=== PATIENT | female | born 1975 | race Caucasian/White ===

== ENCOUNTER 2016-09-06 13:19 | Emergency (ER) | payer OTHER ==
[~2016-09-06] VITALS: Ht 157.5 cm; Wt 80.0 kg
[2016-09-06 13:22] VITALS: Ht 157.5 cm; Wt 80.0 kg
--- NOTE | 2016-09-06 16:01 | ERA ---
ER Documentation Chief Complaint Date/Time DATE: 09/06/16 TIME: 15:56 Chief Complaint Complains of fever and abdominal pain since last night HPI Patient is a 41-year-old female coming in complaining of lower abdominal pain, fever, nausea mild headache, chills, and body aches 12 hours. Patient denies vomiting, changes in bowel or bladder, dysuria, hematuria, melena, migration of pain, constipation or diarrhea. Denies being sexually active for the past year and a half. Has not taken any medications at this point to relieve the symptoms. Measured temperature originally 104, today at in the ER is was above 102F. Patient has never had symptoms like this before. Patient has not had a flu vaccine. Patient's daughter who is one and [age] years old had cold symptoms 1 week ago. Patient's daughter is up-to-date on vaccinations. Patient also reports lyssa blood in stool 1 week ago. No symptoms occurring with bowel or bladder symptoms. Does complain of mild suprapubic tenderness. Feels nauseated when she pushes down on her pubis area. ROS All systems reviewed and are negative except as per history of present illness. Medications Home Meds Active Scripts Ibuprofen* (Motrin*) 600 Mg Tab, 600 MG PO Q6H Y for PAIN AND OR ELEVATED TEMP, #30 TAB Prov:VANNESA SNOWDEN PA-C 09/06/16 Oseltamivir Phosphate* (Tamiflu*) 75 Mg Capsule, 75 MG PO BID for 5 Days, CAP Prov:VANNESA SNOWDEN PA-C 09/06/16 PMhx/Soc Medical and Surgical Hx: pt denies Medical Hx, pt denies Surgical Hx Physical Exam Vitals Vital Signs Date Time Temp Pulse Resp B/P Pulse Ox O2 Delivery O2 Flow Rate FiO2 09/06/16 21:56 98.9 104 20 102/59 99 Room Air 09/06/16 16:19 102.3 09/06/16 13:22 102.7 133 20 127/76 96 Physical Exam Const: [] Head: Atraumatic Eyes: Normal Conjunctiva ENT: Normal External Ears, Nose and Mouth. Neck: Full range of motion..~ No meningismus. Resp: Clear to auscultation bilaterally Cardio: Regular rate and rhythm, no murmurs Abd: Soft, non tender, non distended. Normal bowel sounds Skin: No petechiae or rashes Back: No midline or flank tenderness Ext: No cyanosis, or edema Neur: Awake and alert Psych: Normal Mood and Affect Result Diagram: 09/06/16 1615 09/06/16 1615 Results 24 hrs Laboratory Tests Test 09/06/16 16:09 09/06/16 16:15 09/06/16 16:55 Urine Color YELLOW Urine Clarity SLIGHTLY CLOUDY Urine pH 6.5 Urine Specific [place] 1.015 Urine Ketones NEGATIVE Urine Nitrite NEGATIVE Urine Bilirubin NEGATIVE Urine Urobilinogen 1.0 E.U./dL Urine Leukocyte Esterase NEGATIVE Urine Microscopic RBC 10-25/HPF Urine Microscopic WBC NONE SEEN/HPF Urine Squamous Epithelial Cells FEW Urine Bacteria RARE Urine Hemoglobin TRACE Urine Glucose NEGATIVE% Urine Total Protein 1+ White Blood Count 18.810^3/ul Red Blood Count 4.1010^6/ul Hemoglobin 9.6g/dl Hematocrit 31.7% Mean Corpuscular Volume 77.3fl Mean Corpuscular Hemoglobin 23.4pg Mean Corpuscular Hemoglobin Concent 30.3g/dl Red Cell Distribution Width 14.6% Platelet Count 89080^3/UL Mean Platelet Volume 9.5fl Neutrophils % 89.2% Lymphocytes % 6.7% Monocytes % 3.2% Eosinophils % 0.1% Basophils % 0.3% Nucleated Red Blood Cells % 0.1/100WBC Neutrophils # 16.810^3/ul Lymphocytes # 1.310^3/ul Monocytes # 0.610^3/ul Eosinophils # 0.010^3/ul Basophils # 0.110^3/ul Nucleated Red Blood Cells # 0.010^3/ul Sodium Level 132mmol/L Potassium Level 3.7mmol/L Chloride Level 96mmol/L Carbon Dioxide Level 26mmol/L Anion Gap 14 Blood Urea Nitrogen 11mg/dl Creatinine 0.81mg/dl Glucose Level 117mg/dl Calcium Level 9.4mg/dl Total Bilirubin 0.3mg/dl Direct Bilirubin 0.00mg/dl Indirect Bilirubin 0.3mg/dl Aspartate Amino Transf (AST/SGOT) 27IU/L Alanine Aminotransferase (ALT/SGPT) 39IU/L Alkaline Phosphatase 158IU/L Total Protein 8.4g/dl Albumin 4.5g/dl Globulin 3.90g/dl Albumin/Globulin Ratio 1.15 Stool Occult Blood NEGATIVE Current Medications Medications (Trade) Dose Ordered Sig/Uzma Route PRN Reason Start Time Stop Time Status Last Admin Dose Admin Ibuprofen (Motrin) 600 mg ONCE ONCE PO 09/06/16 16:30 09/06/16 16:31 DC 09/06/16 16:25 Procedures/MDM Patient is complaining of abdominal pain, chills, body aches, fever, mild headache for the past 12 hours. Patient symptoms are consistent with food. Patient has never had symptoms like this before. Patient also claims to have had past bright red blood per rectum. We will go ahead and evaluate for differential including but not limited to diverticulitis diverticulosis, colitis. We will also retrieve a urine sample to evaluate for urinary tract infection and . was negative, blood in stool was negative with guaiac test, CT showed only 2.5 cm ovarian cyst and enlarged uterus, no concern for diverticular pathology, no concern for appendicitis, no relation to food no concern for liver\gallbladder attacks/pancreas pathology, no tenderness on abdominal exam except for mild suprapubic tenderness. No polyuria or dysuria noted and urinary tract infection is highly unlikely with a negative urine exam. Went ahead and got a chest x-ray to rule out possible pneumonia. Chest x-ray was negative. Flu test was negative with poor sensitivity we will go ahead and treat for flu with Tamiflu since it is within the 2 day period. At this time the most likely diagnosis is influenza. Strength in by the fact that she has not gotten the vaccination past few years. I discussed this case with Dr. Sanderson and he agrees with the assessment and plan. Departure Condition: Stable Additional Instructions: Return to emergency department immediately if symptoms worsen or persist. VANNESA SNOWDEN PA-C Sep 06, 2016 16:01
[2016-09-06 16:21] LABS: ADD SCAN DIFF NO
[2016-09-06 16:24] LABS: BASOPHIL # 0.1 10^3/ul (0.0-0.1); BASOPHILS % 0.3 % (0.0-2.0); EOSINOPHILS % 0.1 % (0.0-7.0); HEMATOCRIT 31.7 % (37.0-47.0); HEMOGLOBIN 9.6 g/dl (12.0-16.0); LYMPHOCYTES # 1.3 10^3/ul (0.8-2.9); LYMPHOCYTES % 6.7 % (15.0-51.0); MEAN CORPUSCULAR HEMOGLOBIN 23.4 pg (29.0-33.0); MEAN CORPUSCULAR HGB CONC 30.3 g/dl (32.0-37.0); MEAN CORPUSCULAR VOLUME 77.3 fl (82.0-101.0); MEAN PLATELET VOLUME 9.5 fl (7.4-10.4); MONOCYTE # 0.6 10^3/ul (0.3-0.9); MONOCYTES % 3.2 % (0.0-11.0); NEUTROPHIL # 16.8 10^3/ul (1.6-7.5); NEUTROPHILS % 89.2 % (39.0-77.0); NUCLEATED RED BLOOD CELLS% 0.1 /100WBC (0.0-0.0); PLATELET COUNT 465 10^3/UL (140-415); RED CELL DISTRIBUTION WIDTH 14.6 % (11.5-14.5); WHITE BLOOD COUNT 18.8 10^3/ul (4.8-10.8)
[2016-09-06 16:27] LABS: ADD UMIC YES; URINE BILIRUBIN (Dip) NEGATIVE (NEGATIVE); URINE BLOOD (Dip) TRACE (NEGATIVE); URINE COLOR YELLOW (YELLOW); URINE GLUCOSE (Dip) NEGATIVE (NEGATIVE); URINE KETONES (Dip) NEGATIVE (NEGATIVE); URINE LEUKOCYTE ESTERASE (Dip) NEGATIVE (NEGATIVE); URINE NITRITE (Dip) NEGATIVE (NEGATIVE); URINE TOTAL PROTEIN (Dip) 1+ (NEGATIVE); URINE UROBILINOGEN (Dip) 1.0 E.U./dL (0.1-1.0)
[2016-09-06] MEDS ORDERED: IBUPROFEN 600 MG TAB PO ONE (16:30)
[2016-09-06 16:35] LABS: ALBUMIN 4.5 g/dl (3.3-4.9)
[2016-09-06 16:36] LABS: POTASSIUM 3.7 mmol/L (3.5-5.1)
[2016-09-06 16:37] LABS: BACTERIA,URINE RARE; SQUAMOUS EPITHELIAL CELL,UR FEW
[2016-09-06 16:38] LABS: ALBUMIN/GLOBULIN RATIO 1.15; BILIRUBIN,INDIRECT 0.3 mg/dl (0-1.1); BILIRUBIN,TOTAL 0.3 mg/dl (0.2-1.3); CREATININE 0.81 mg/dl (0.44-1.00); TOTAL PROTEIN 8.4 g/dl (6.1-8.1)
[2016-09-06 16:39] LABS: CALCIUM 9.4 mg/dl (8.4-10.2)
--- NOTE | 2016-09-06 20:05 | RADRPT ---
PROCEDURE: CT abdomen and pelvis without contrast. CLINICAL INDICATION: Abdominal pain TECHNIQUE: CT scan of the abdomen and pelvis without contrast was performed on a multislice [facility] utilizing axial imaging from the lung bases through the pubis symphysis. The patient was scann ed without intravenous contrast. Sagittal and coronal reformatted images were made. The CTDIvol is 10.25 mGy and the DLP is 570.17 mGycm. One of the following 3 dose reduction techniques were used during this CT examination: automated exp osure control; adjustment of the mA and /or kV according to patient size; or use of iterative recons truciton technique. COMPARISON: None available FINDINGS: The lung bases are remarkable for bibasilar subsegmental discoid atelectasis. The heart size is nor mal. No pericardial or pleural effusion is present. Mild diffuse fatty infiltration of the liver i s present. The visualized spleen, pancreas, gallbladder, and bilateral adrenal glands are normal. The bilateral kidneys are normal. No hydroureter nephrosis or nephroureterolithiasis is present. The visualized aorta demonstrates mild vascular calcifications without evidence for aneurysmal dilat ation. The visualized bowel is nonobstructive. No evidence for diverticulosis, diverticulitis, or appendic itis is present. The visualized pelvis demonstrates mild uterine enlargement and a dominant left adnexal cyst which m easures approximately 2.9 cm. Recommend pelvic ultrasound to further evaluate. No evidence for asc ites or pneumoperitoneum is present. No pelvic pelvic mass or pathologic lymphadenopathy is noted. The surrounding osseous structures are normal. No evidence for acute fractures or traumatic subluxa tions are present. IMPRESSION: 1. No evidence for acute intra-abdominal or pelvic pathology. 2. Bibasilar subsegmental discoid atelectasis 3. Mild uterine enlargement and dominant left adnexal cyst measuring 2.9 cm. Recommend pelvic ultr asound to further evaluate or contrast CT. RPTAT: HDC .Gaby Mcdowell MD, Date Time Electronically viewed and signed by .Gaby Mcdowell MD, on 09/06/2016 20:04 .C/
--- NOTE | 2016-09-06 21:14 | RADRPT ---
PROCEDURE: XR Chest AP portable CLINICAL INDICATION: Possible pneumonia TECHNIQUE: An AP portable radiograph of the chest was submitted. COMPARISON: None. FINDINGS: Support Hardware: None Cardiovascular: The cardiovascular silhouette appears unremarkable. Lung Jennings: The lung jennings appear clear with no nodule, alveolar infiltrate, or interstitial promi nence evident. Pleural Spaces: No pneumothorax or pleural effusion is identified. Osseous Structures: The osseous structures appear intact. Soft Tissues: The soft tissues appear generous. IMPRESSION: Unremarkable portable chest. Physician Lenora Date Time Electronically viewed and signed by Toribio Nur Physician on 09/06/2016 21:14 /
[2016-09-06] MEDS ORDERED: OSLT75C PO (21:42)
[2016-09-06] MEDS ORDERED: IBUP-1542 PO (21:45)
[2016-09-06 21:56] VITALS: BP 102/59; PULSE 104; RESP 20; TEMP 98.9
== END 2016-09-06 21:56 | disposition home or self-care (01) ==
LOC: FTE 13:19
DX: R10.30 Lower abdominal pain, unspecified (principal); R50.9 Fever, unspecified; R11.0 Nausea; R51 Headache
CPT/HCPCS: 71010; 74176; 80053; 81001; 82270; 85025; 87400; Z7610; 81003